=== PATIENT | female | born 1970 | race Caucasian/White ===

== ENCOUNTER → 2016-10-19 | Outpatient (CLI) | payer OTHER | LOC: FIMAGING 13:01 | DX: Z12.31 Encounter for screening mammogram for malignant neoplasm of breast (principal); Z80.3 Family history of malignant neoplasm of breast | CPT/HCPCS: G0202 ==

== ENCOUNTER → 2017-04-28 | Outpatient (CLI) | payer OTHER ==
[~2017-04-28] MED LIST: GADOBUTROL 10 ML VIAL IVP ONE
== END ==
LOC: FIMAGING 08:15
PROVIDERS: ATTEND Internal Medicine Hematology & Oncology
DX: R92.8 Other abnormal and inconclusive findings on diagnostic imaging of breast (principal); Z80.3 Family history of malignant neoplasm of breast
CPT/HCPCS: 0159T; A9585; C8908

== ENCOUNTER → 2017-05-16 | Outpatient (CLI) | payer OTHER | LOC: FIMAGING 14:18 | PROVIDERS: ATTEND Internal Medicine Hematology & Oncology | DX: Z12.39 Encounter for other screening for malignant neoplasm of breast (principal); R92.8 Other abnormal and inconclusive findings on diagnostic imaging of breast; Z80.3 Family history of malignant neoplasm of breast | CPT/HCPCS: G0206 ==

== ENCOUNTER → 2017-10-30 | Outpatient (CLI) | payer OTHER | LOC: FIMAGING 09:10 | PROVIDERS: ATTEND Internal Medicine Hematology & Oncology | DX: N63.20 Unspecified lump in the left breast, unspecified quadrant (principal) | CPT/HCPCS: 0159T; A9585; C8908 ==

== ENCOUNTER 2017-12-15 07:10 | Observation (INO) | payer OTHER ==
--- NOTE | 2017-12-10 16:27 | GHP ---
[f rep st] HISTORY AND PHYSICAL DATE OF ADMISSION: 12/15/2017 CHIEF COMPLAINT: High-risk breast cancer. HISTORY OF PRESENT ILLNESS: Britt is a 47-year-old woman who presented to discuss prophylactic bilat eral mastectomy. She has an increased risk of breast cancer based on her family history. She had he r 1st screening mammogram and ultrasound April 2016, which was negative. She had a breast MRI 2017, which showed stable appearance of both breasts. There is an area of nonenhancing nodular ity in the lateral aspect of the left breast, which may represent focal scar, BI-RADS 2. She is frus trated by the increased screening process and would like risk reduction surgery. Her [facility] breast cancer risk is 35%. She had menarche at age 14. She still menstruates regularly. She is . She has never had a previous breast biopsy. She does have [employer] descent. No family of ovarian cancer. Her mother was diagnosed with breast cancer at age 69, a maternal aunt wit h breast cancer at age 60, maternal cousin with breast cancer at age 38. She has never used hormone replacement therapy. PAST MEDICAL HISTORY: None. PAST SURGICAL HISTORY: Breast reduction, bilateral. MEDICATIONS: None. ALLERGIES: Morphine. FAMILY HISTORY: Breast cancer as above, lung cancer in her uncle. SOCIAL HISTORY: She uses occasional alcohol. She does use marijuana. She does not use tobacco prod ucts. REVIEW OF SYSTEMS: A 10-point review of systems negative, except per HPI. PHYSICAL EXAMINATION: GENERAL: Well-developed, well-nourished woman, in no acute distress. HEENT: Normocephalic. No gross hearing deficits. Pupils equal and round. No scleral icterus. Mucous mem branes moist. RESPIRATORY: Clear to auscultation bilaterally. No increased work of breathing. CARD IAC: Regular rate. MUSCULOSKELETAL: Normal gait. Normal nails. PSYCH: Mood and affect normal. NEURO: Grossly intact. IMPRESSION AND PLAN: A 47-year-old with a 35% GUILLAUME breast cancer risk. She desires prophylactic desirae ateral mastectomy without reconstruction. We did spend a lot of time discussing sentinel lymph nodes . She has declined sentinel lymph node biopsy. She understands that if occult breast cancer is foun d that we would recommend an axillary dissection. She stated that even if breast cancer is found she is not sure that she would pursue any treatment for it. We discussed the risks and benefits of surg ashley. We discussed that this is a risk reduction surgery, although it does not make her risk to 0%. She understands that there will be issues with scarring and will be a changing cosmesis. She underst ands there could be infection and wound healing issues. There is also risks associated such as strok e, heart attack, , and blood clots. /[id number]/MODL
[2017-12-15] MEDS ORDERED: ceFAZolin 2 GM/SWFI 2 GM/20 ML SYR IVP ONE (07:20)
[2017-12-15] MEDS ORDERED: LR 1,000 ML IV ONE (07:21)
[2017-12-15] MEDS ORDERED: ceFAZolin 2 GM/DEXTROSE 100 ML IV ONE (07:30)
--- NOTE | 2017-12-15 07:53 | PDHPUP ---
History & Physical Update H&P update statement: This history and physical update is based on an assessment of the patient which was completed after admission or registration (within 24 hours), but prior to the surgery/procedure. H&P update: H&P reviewed & patient examined, no change in patient's condition since H&P completed
--- NOTE | 2017-12-15 09:03 | PDANEPAE ---
ANE History of Present Illness 47 year old with breasst ca ANE Past Medical History - Cardiovascular History Hx Hypertension: No Hx Arrhythmias: No Hx Chest Pain: No Hx Coronary Artery / Peripheral Vascular Disease: No Hx CHF / Valvular Disease: No Hx Palpitations: No Cardiovascular History Comment: BP runs low - Pulmonary History Hx COPD: No Hx Asthma/Reactive Airway Disease: No Hx Recent Upper Respiratory Infection: No Hx Oxygen in Use at Home: No Hx Sleep Apnea: No Sleep Apnea Screening Result - Last Documented: Positive Pulmonary History Comment: MARIO uses CPAP - Neurologic History Hx Cerebrovascular Accident: No Hx Seizures: No Hx Dementia: No - Endocrine History Hx Diabetes: No - Renal History Hx Renal Disorders: No - Liver History Hx Hepatic Disorders: No - Neurological & Psychiatric Hx Hx Neurological and Psychiatric Disorders: No - Cancer History Hx Cancer: Yes - Congenital Disorder History Hx Congenital Disorders: No - GI History Hx Gastrointestinal Disorders: No - Other Health History Other Health History: nobe - Chronic Pain History Chronic Pain: No - Surgical History Prior Surgeries: knee scope,adanoids ANE Review of Systems Review of systems is: negative Review of Systems: - Exercise capacity METS (RN): 4 METS ANE Patient History - Allergies Allergies/Adverse Reactions: morphine Allergy (Verified 11/20/17 15:36) Vomiting - Home Medications Home medications: home medication list seen and reviewed Home Medications: NK [No Known Home Meds] 11/17/17 [Last Taken Unknown] - NPO status NPO Status: no food or drink >8 hours NPO Since - Liquids (Date): 12/15/17 NPO Since - Liquids (Time): 02:00 NPO Since - Solids (Date): 12/14/17 NPO Since - Solids (Time): 19:00 - Anes Hx Anes Hx: no prior problems - Smoking Hx Smoking Status: Never smoked - Alcohol Use Alcohol Use: None - Family Anes Hx Family Anes Hx: none Family Hx Anesthesia Complications: none ANE Labs/Vital Signs - Vital Signs Blood Pressure: 110/68 Heart Rate: 68 Respiratory Rate: 16 O2 Sat (%): 96 Height: 168.91 cm Weight: 97.522 kg ANE Physical Exam - Airway Neck exam: FROM Mallampati Score: Class 1 - Pulmonary Pulmonary: no respiratory distress - Cardiovascular Cardiovascular: regular rate and rhythym - ASA Status ASA Status: II ANE Anesthesia Plan Anesthesia Plan: GA w LMA
[2017-12-15] MEDS ORDERED: BUPIVACAINE 0.5% 30 ML SDV ONE (09:08)
[2017-12-15] MEDS ORDERED: THROMBIN (BOVINE) 20,000 UNIT SPRAY TP ONE (09:08)
[2017-12-15] MEDS ORDERED: MIDAZOLAM 2 MG/2 ML VIAL IVP ONE (09:08)
[2017-12-15] MEDS ORDERED: MIDAZOLAM 2 MG/2 ML VIAL ONE (09:17)
[2017-12-15] MEDS ORDERED: fentaNYL 100 MCG/2 ML INJ ONE ×3 (09:28→12:39)
[2017-12-15] MEDS ORDERED: PROPOFOL 200 MG/20 ML VIAL ONE (09:28)
--- NOTE | 2017-12-15 11:44 | POSTOPPROG ---
Post Op Note Date of Operation: 12/15/17 Surgeon: Cindy Antoine Anesthesiologist: warm Anesthesia: GET(General Endotracheal) Pre-op Diagnosis: high risk breast ca Post-op Diagnosis: same Indication: 47 yo with 35% GUILLAUME risk developing breast ca Procedure: bilateral mastectomy Findings: no unusual Inf/Abcess present in the surg proc area at time of surgery?: No EBL: Minimal Specimen(s): bilateral breast short superior long lateral
[2017-12-15] MEDS ORDERED: ONDANSETRON 4 MG/2 ML VIAL IVP PRN ×2 (11:45→11:52)
[2017-12-15] MEDS ORDERED: ONDANSETRON DISINTEGRATING 4 MG TAB PO PRN (11:45)
[2017-12-15] MEDS ORDERED: ACETAMINOPHEN 500 MG TAB PO PRN (11:45)
[2017-12-15] MEDS ORDERED: HYDROCODONE/APAP 5/325 TAB PO PRN (11:52)
[2017-12-15] MEDS ORDERED: NALOXONE HCL 0.4 MG/ML INJ IVP PRN (11:52)
[2017-12-15] MEDS ORDERED: HYDROmorphONE/DILAUDID 2 MG/ML INJ IVP PRN (11:52)
[2017-12-15] MEDS ORDERED: PROMETHAZINE HCL 25 MG/ML INJ IVP PRN (11:52)
--- NOTE | 2017-12-15 11:52 | POSTANESTH ---
Post Anesthetic Evaluation Cardiovascular Status: Normal, Stable Respiratory Status: Normal, Stable Level of Consciousness/Mental Status: Can Participate in Eval, Mildly Sleepy, Arousable Pain Control: Adequate, Prn Tx Ordered Nausea/Vomiting Control: Adequate, Prn Tx Ordered Complications Possibly Related to Anesthesia: None Noted
[2017-12-15] MEDS: fentaNYL 100 MCG/2 ML INJ IVP PRN ×2 (12:41→13:22)
--- NOTE | 2017-12-15 12:52 | GOP ---
[f rep st] OPERATIVE REPORT DATE OF OPERATION: 12/15/2017 SURGEON: Cindy Antoine MD ANESTHESIA: Andrew Gray MD/General. PREOPERATIVE DIAGNOSIS: High-risk breast cancer. POSTOPERATIVE DIAGNOSIS: High-risk breast cancer. PROCEDURE PERFORMED: Bilateral mastectomy. FINDINGS: No unusual SPECIMENS: Right breast short superior long lateral, left breast short superior long lateral. ESTIMATED BLOOD LOSS: 50 cc. INDICATIONS: The patient is a 47-year-old woman who has an GUILLAUME risk of 35% of developing breast cancer. She did not want to continue doing high-risk screening. She desired prophylactic mastectomy. DESCRIPTION OF PROCEDURE: The patient was brought into the operating room, placed supine on the table and general anesthesia was administered. Her bilateral breast, chest and axilla were prepped and draped in the usual sterile fashion. I made an ellipse around the right breast. I created a superior inferior skin flap. My dissection occurred to the clavicle, inframammary fold, mid axillary line and sternum. I removed the breast and left the pectoralis fascia behind. Hemostasis was achieved in the wound. I placed a 15 round silicone drain and sutured it in place with 3-0 nylon. I closed the wound with 3-0 Vicryl. I created the V and Y flap laterally. I closed the skin with 4-0 Monocryl, Mastisol, Steri-Strips, and a sterile dressing were applied. In a similar fashion, I performed a mastectomy on the left side again with the V and Y flap on the lateral edge. She tolerated the procedure well. She was awakened in the operating room, extubated, transferred to PACU in stable condition. DRAINS: 2 Javed-Starkey drains. /[id number]/MODL MTDD
[2017-12-15] MEDS: KETOROLAC 15 MG/1 ML SDV IVP SCH ×3 (15:46→23:48)
[2017-12-15] MEDS: HYDROCODONE/APAP 5/325 TAB PO PRN (21:27)
[2017-12-16] MEDS: KETOROLAC 15 MG/1 ML SDV IVP SCH (05:40)
[2017-12-16] MEDS: HYDROCODONE/APAP 5/325 TAB PO PRN ×2 (05:41→09:47)
[2017-12-16 08:02] VITALS: BP 105/67
== END 2017-12-16 12:30 | disposition home or self-care (01) ==
LOC: F3E 07:10 → F1N 09:41
PROVIDERS: ADMIT Surgery; ATTEND Surgery
PROC: 0HTV0ZZ Resection of Bilateral Breast, Open Approach (ICD-10-PCS; principal; 2017-12-15 08:30)
DX: N60.91 Unspecified benign mammary dysplasia of right breast (principal); N60.92 Unspecified benign mammary dysplasia of left breast; Z15.01 Genetic susceptibility to malignant neoplasm of breast; Z80.3 Family history of malignant neoplasm of breast
CPT/HCPCS: 19303; G0378; J0690; J1885; J2250; J2704; J3010

== ENCOUNTER → 2018-01-04 | Outpatient (CLI) | payer OTHER | LOC: FIMAGING 13:50 | PROVIDERS: ATTEND Surgery | DX: R06.89 Other abnormalities of breathing (principal); T81.30XA Disruption of wound, unspecified, initial encounter; Z90.13 Acquired absence of bilateral breasts and nipples ==

== ENCOUNTER 2018-03-25 08:16 | Emergency (ER) | payer OTHER ==
[2018-03-25] MEDS ORDERED: DIAZEPAM 5 MG/ML 1 ML SYR IVP ONE (09:10)
--- NOTE | 2018-03-25 09:16 | EDPHY ---
H & P Smoking Status: Never smoked Time Seen by Provider: 03/25/18 08:54 HPI/ROS: CHIEF COMPLAINT: Left-sided chest and flank pain HISTORY OF PRESENT ILLNESS: 48-year-old female presents to the emergency department with left-sided chest and flank pain that began approximately 2 weeks ago. She states that it initially started as some left low back pain which is now become more left mid back pain and left side posterior chest pain. Her pain is worse with movement. She does not feel short of breath although she does complain of pain with deep breathing. She denies paresthesias in her upper or lower extremities. Denies fevers or chills. Denies abdominal pain. Denies any urinary symptoms. No reported trauma. She had prophylactic bilateral mastectomy in December of 2017 and she is approximately 13 weeks postop. She has no calf pain or swelling. No recent travel. REVIEW OF SYSTEMS: Constitutional: No fever, no chills. Eyes: No double or blurry vision. ENT: No sore throat. Respiratory: No cough, no shortness of breath. Cardiac: No chest pain. Gastrointestinal: No abdominal pain, vomiting or diarrhea. Genitourinary: No dysuria. Musculoskeletal: Flank pain as above. No neck pain. Skin: No rashes. Neurological: No headache. (Manda Yancey) Past Medical/Surgical History: Bilateral mastectomy December 2017 (Manda Yancey) Social History: Single and lives in [place] (Manda Yancey) Physical Exam: General Appearance: Alert, no distress. Afebrile. Heart rate 78, 97% on room air, 131/79 Eyes: Pupils equal and round. Extraocular motions are all intact. ENT: Mouth: Mucous membranes moist. Respiratory: No wheezing, rhonchi, or rales, lungs are clear to auscultation. Cardiovascular: Regular rate and rhythm. Gastrointestinal: Abdomen is soft and nontender, no masses, no rebound or guarding, bowel sounds normal. No CVA tenderness bilaterally. Neurological: Alert and oriented x 3, cranial nerves II through XII grossly intact Skin: Warm and dry, no rashes. Musculoskeletal: Nontender to palpate along the cervical, thoracic or lumbar spine. Neck is supple. Pain is reproducible with change of position. Extremities: Full range of motion and no peripheral edema. Psychiatric: Patient is oriented X 3, there is no agitation. (Manda Yancey) Constitutional: Initial Vital Signs Temperature (C) 36.8 C 03/25/18 08:17 Heart Rate 78 03/25/18 08:17 Respiratory Rate 18 03/25/18 08:17 Blood Pressure 131/79 H 03/25/18 08:17 O2 Sat (%) 97 03/25/18 08:17 O2 Delivery Mode Room Air Allergies/Adverse Reactions: morphine Allergy (Mild, Verified 03/25/18 08:16) Vomiting Home Medications: Medication Instructions Recorded Cyclobenzaprine [Flexeril] 10 mg PO TIDPRN PRN #12 tab 03/25/18 Hydrocodone/APAP 5/325 [[place] 1 each PO Q4-6PRN PRN #11 tab 03/25/18 5/325 (*)] methylPREDNISolone [Medrol Dose 1 each PO AD #0 ea 03/25/18 Vinnie] Medical Decision Making - Diagnostics Imaging: Discussed imaging studies w/ cultural anthropology professor Radiologist ED Course/Re-evaluation: 48-year-old female presents emergency department with left flank pain. The patient had normal laboratory studies. She was concerned about possible pneumonia or kidney stone or something intra-abdominal. I discussed the case with Dr. Isaías Beasley, secondary supervising physician, who did not directly evaluate the patient but agrees with treatment and plan. CT imaging of the chest and abdomen and pelvis was all within normal limits. Patient was given IV Solu-Medrol, IV Valium, IV Toradol, and was feeling much better. She will be discharged with Medrol Dosepak, Flexeril, and hydrocodone per her request. She was given strict instructions to return if she felt short of breath, increasing pain, or any other concerns. (Manda Yancey) I did not see this patient while she was in the emergency department. However her care was discussed with the PA while the patient was in the department. I agree with treatment plan and management (Isaías Beasley) Differential Diagnosis: Including but not limited to intra-abdominal injury, pneumothorax, rib fracture , hematoma (Manda Yancey) - Data Points Laboratory Results: Laboratory Results 03/25/18 08:40 03/25/18 08:40 Medications Given: Discontinued Medications Diazepam (Valium) 5 mg IVP EDNOW ONE Stop: 03/25/18 09:11 Last Admin: 03/25/18 09:14 Dose: 5 mg Ketorolac Tromethamine (Toradol) 30 mg IVP EDNOW ONE Stop: 03/25/18 11:12 Last Admin: 03/25/18 11:14 Dose: 30 mg Methylprednisolone Sodium Succinate (Solu-Medrol) 125 mg IVP EDNOW ONE Stop: 03/25/18 12:13 Last Admin: 03/25/18 12:16 Dose: 125 mg Departure - Departure Disposition: Home, Routine, Self-Care Clinical Impression: Back pain Condition: Good Instructions: Back Pain (ED) Additional Instructions: Medrol Dosepak as directed for 1 week. Flexeril as needed for muscular spasm. Hydrocodone for severe pain to help you sleep. Caution drowsiness with this medication. Avoid any lifting or any activity that causes increasing pain. Return to the emergency department if you feel short of breath, increasing pain , or if you feel worse in any way. Referrals: Radha Chen NP [Primary Care Provider] - 2-3 days without fail Prescriptions: Cyclobenzaprine [Flexeril] 10 mg PO TIDPRN PRN #12 tab PRN Reason: prn spasms Hydrocodone/APAP 5/325 [[place] 5/325 (*)] 1 each PO Q4-6PRN PRN #11 tab PRN Reason: Pain, Severe methylPREDNISolone [Medrol Dose Vinnie] 1 each PO AD #0 ea
[2018-03-25 09:17] LABS: PLATELET COUNT 262 10^3/uL (150-400)
[2018-03-25] MEDS ORDERED: IOPAMIDOL (ISOVUE-300) 100 ML BTL ONE (10:20)
[2018-03-25] MEDS ORDERED: KETOROLAC 30 MG/1 ML SDV IVP ONE (11:11)
[2018-03-25] MEDS ORDERED: methylPREDNISolone SOD SUCC 125 MG/2 ML VIAL IVP ONE (12:12)
[2018-03-25 12:37] VITALS: BP 120/78
== END 2018-03-25 12:41 | disposition home or self-care (01) ==
DX: M54.5 Low back pain (principal)
CPT/HCPCS: 96374; J1885; J2930; J3360; Q9967